=== PATIENT | female | born 1965 | race Caucasian/White ===

== ENCOUNTER → 2016-12-26 | Outpatient (CLI) | payer OTHER ==
[~2016-12-26] MED LIST: ACET-1138 PO; ASPEC81 PO; CLR10 PO; DIPH50TA10 PO; HYDR25TA4 PO; MOME16.7 INH; SENN-61 PO; ULT50X PO
[2016-12-26 12:18] LABS: HEMATOCRIT 42.5 % (37-47); MEAN CELL VOLUME 87.4 fL (80-100); MEAN CORPUSCULAR HEMOGLOBIN 28.6 pg (25-34); MEAN CORPUSCULAR HGB CONC 32.7 g/dl (32-36); MEAN PLATELET VOLUME 9.6 fL (7.4-10.4); PLATELET COUNT 258 K/uL (130-400); RED BLOOD COUNT 4.86 M/uL (4.2-5.4); WHITE BLOOD COUNT 6.05 K/uL (4.8-10.8)
[2016-12-26 13:22] LABS: BLOOD UREA NITROGEN 23 mg/dl (7-18); BUN/CREATININE RATIO 25.7 (10-20); CARBON DIOXIDE 26 mmol/L (21-32); CHLORIDE 110 mmol/L (98-107); CREATININE 0.91 mg/dl (0.60-1.20); GLUCOSE 91 mg/dl (70-99); SODIUM 141 mmol/L (136-145)
[2016-12-26 13:26] LABS: CALCIUM 9.4 mg/dl (8.5-10.1)
== END | disposition home or self-care (01) ==
LOC: C.LAB1850 10:51
PROVIDERS: ATTEND Internal Medicine Cardiovascular Disease
DX: R55 Syncope and collapse (principal); Q21.1 Atrial septal defect; R53.83 Other fatigue; R42 Dizziness and giddiness

== ENCOUNTER → 2017-01-09 | Outpatient (CLI) | payer OTHER | END | disposition home or self-care (01) | LOC: C.LAB1850 15:47 | PROVIDERS: ATTEND Obstetrics & Gynecology | DX: N91.2 Amenorrhea, unspecified (principal) ==

== ENCOUNTER → 2017-01-09 | Outpatient (CLI) | payer OTHER | END | disposition home or self-care (01) | LOC: C.PAPS 10:31 | PROVIDERS: ATTEND Obstetrics & Gynecology | DX: Z01.419 Encounter for gynecological examination (general) (routine) without abnormal findings (principal) ==

== ENCOUNTER → 2017-04-13 | Outpatient (CLI) | payer OTHER ==
[2017-04-13 09:58] LABS: CHOLESTEROL/HDL RATIO 4.4
== END | disposition home or self-care (01) ==
LOC: C.LAB 06:59
PROVIDERS: ATTEND Family Medicine
DX: Z00.00 Encounter for general adult medical examination without abnormal findings (principal)

== ENCOUNTER → 2017-05-29 | Outpatient (CLI) | payer OTHER ==
--- NOTE | 2017-05-30 15:09 | MAMMOGRAPHY REPORT ---
BILATERAL DIGITAL SCREENING MAMMOGRAM TOMOSYNTHESIS WITH CAD: 05/29/2017 CLINICAL HISTORY: Routine screening. Patient has no complaints. TECHNIQUE: Breast tomosynthesis in addition to standard 2D mammography was performed. Current study was also evaluated with a Computer Aided Detection (CAD) system. COMPARISON: Comparison is made to exams dated: 05/24/2016 mammogram, 10/26/2015 mammogram, 04/20/2015 mammogram, 10/13/2014 mammogram, 04/11/2014 mammogram, and 04/08/2014 mammogram - [facility]. BREAST COMPOSITION: There are scattered areas of fibroglandular density in both breasts. FINDINGS: There is stable asymmetry and excepted architectural distortion in the lateral right breast , denoting a site of prior benign excisional biopsy. No suspicious mass, architectural distortion or cluster of microcalcifications is seen. IMPRESSION: ACR BI-RADS CATEGORY 1: NEGATIVE There is no mammographic evidence of malignancy. A 1 year screening mammogram is recommended. The pa tient will receive written notification of the results. Approximately 10% of breast cancers are not detected with mammography. A negative mammographic report should not delay biopsy if a clinically suggestive mass is present. Lacey Bridges M.D. ay/:05/29/2017 16:41:55 [employer] System: Ayanna CISNEROS)Srinath)(BD), [facility] letter sent: Normal 1/2 BI-RADS Code: ACR BI-RADS Category 1: Negative
== END | disposition home or self-care (01) ==
LOC: C.MAMM 09:44
PROVIDERS: ATTEND Obstetrics & Gynecology
DX: Z12.31 Encounter for screening mammogram for malignant neoplasm of breast (principal)

== ENCOUNTER → 2017-06-22 | Outpatient (CLI) | payer OTHER ==
[~2017-06-22] MED LIST changes: +GADAVIST IV PRN
--- NOTE | 2017-06-22 08:28 | DIAGNOSTIC IMAGING REPORT ---
BRAIN COMBO FOR IAC CLINICAL HISTORY: Follow up acoustic neuroma. COMPARISON STUDY: MRI of the brain June 06, 2016. TECHNIQUE: Utilizing a 1.5 Adwoa magnet and dedicated coil, multiplanar, multi echo imaging of the brain was performed pre and postcontrast administration with thin cut imaging through the internal auditory canals. Injection of 9 cc of Gadavist IV was uneventful. FINDINGS: No foci of restricted diffusion are present. No acute intracranial hemorrhage, midline shift or mass effect is present. Ventricular system is normal. Basilar cisterns are patent. There are no extra-axial collections. Flow-voids for the major intracranial vessels are present. A few punctate foci of white matter T2 hyperintensity are unchanged since prior exam of June 06, 2016. Right internal auditory canal is normal. A 1.2 x 0.6 x 0.8 cm enhancing mass within the left internal auditory canal is similar to MRI of June 06, 2016. No additional masses are identified on this examination. Surgical findings within the posterior fossa are unchanged. Note is made of moderate mucosal thickening within the maxillary and ethmoid sinuses with air-fluid levels within the maxillary sinuses. IMPRESSION: 1. No significant change in the enhancing lesion within the left internal auditory canal consistent with the history of acoustic neuroma. 2. Bilateral maxillary and ethmoid sinusitis, likely acute. Electronically signed by: Zackery Peter M.D. 06/22/2017 8:26 AM Dictated Date/Time: 06/22/2017 7:57 AM
== END | disposition home or self-care (01) ==
LOC: C.MRIBC 06:45
PROVIDERS: ATTEND Family Medicine
DX: J32.0 Chronic maxillary sinusitis (principal); J32.2 Chronic ethmoidal sinusitis; D33.3 Benign neoplasm of cranial nerves